=== PATIENT | male | born 1995 | race Caucasian/White ===

== ENCOUNTER 2022-01-28 12:25 | Emergency (ER) | payer OTHER, SELFPAY ==
--- NOTE | ~2022-01-28 | XR_ITS ---
EXAMINATION: XR CHEST CLINICAL INFORMATION: Cough, shortness of breath. COMPARISON: None TECHNIQUE: 2 views of the chest were obtained. FINDINGS: No significant abnormality is noted involving the heart, lungs, mediastinum, bony thorax or soft tissues. XR/XR chest 2V IMPRESSION: No acute cardiopulmonary process.
[2022-01-28 12:39] VITALS: BP 157/70; PULSE 54; RESP 20; TEMP 36.8; O2SAT 98; BMI 36.0
--- NOTE | 2022-01-28 12:44 | ED.GENADULT ---
HPI - General Adult General Chief complaint: General Medical Stated complaint: Dizziness/Eye blurriness after chemical exposure Time Seen by Provider: 01/28/22 12:48 Source: patient Mode of arrival: ambulatory Limitations: no limitations History of Present Illness HPI narrative: 27-year-old male here with complaints of feeling lightheaded, nausea, headache, light sensitivity after being exposed to pneumonia products yesterday. Patient reports he was working in a ammonia containing substance spilled in the back of his truck. He believes he was exposed for several hours and then started to clean it up. Started to develop these symptoms during the cleaning process which have continued through today. Overall he is feeling better but not 100%. He denies any URI symptoms today but did have some yesterday which have resolved. Related Data Allergies Allergy/AdvReac Type Severity Reaction Status Date / Time No Known Allergies Allergy Verified 01/28/22 12:44 Review of Systems Review of Systems: Yes all other systems are reviewed and are negative Constitutional: Constitutional: Reports no additional constitutional complaints, Denies body ache(s), Denies chills, Denies fever(s), Reports headache(s) and Denies weakness Eyes: Eyes: Reports no additional eye complaints, Denies change in vision and Reports photophobia ENT: Reports system reviewed and no additional complaints, except as documented, Reports dizziness, Reports headache(s), Denies nasal congestion, Denies nasal discharge and Denies neck pain Cardiovascular: Cardiovascular: Reports no additional cardiovascular complaints, Denies chest pain, Denies leg edema and Denies dyspnea Respiratory: Respiratory: Reports no additional respiratory complaints, Denies cough and Denies dyspnea Gastrointestinal: Gastrointestinal: Reports no additional gastrointestinal complaints, Denies abdominal pain, Denies diarrhea, Reports nausea and Denies vomiting Genitourinary: Genitourinary: Denies urinary incontinence Musculoskeletal: Musculoskeletal: Reports no additional musculoskeletal complaints, Denies back pain, Denies arthralgias, Denies joint swelling, Denies neck pain, Denies numbness and Denies tingling Integumentary/Breasts: Skin/Breast: Reports system reviewed and no additional complaints, except as docu and Denies rash Neurologic: Reports system reviewed and no additional complaints, except as documented, Reports dizziness, Reports headache(s), Denies numbness, Denies tingling and Denies weakness [facility] Past Medical History Attestation statement: The following information was validated with the patient. Source: old records reviewed and nursing notes reviewed Physical Exam ED Vital Signs: Vital Signs - 24 hr 01/28/22 12:39 Temperature 98.2 F Pulse Rate 54 Respiratory Rate 20 Blood Pressure 157/70 H Pulse Oximetry 98 Oxygen Delivery Method Room Air BMI result Body Mass Index 36.0 Const General: cooperative, healthy appearing, comfortable and no acute distress Orientation/consciousness: patient oriented x3 Limitations: no limitations HENMT Head: Yes normal to inspection Ears: hearing grossly normal bilaterally Eyes General: appearance normal, both eyes and all related structures Pupils: Equal, round and reactive pupils present Direct Ophthalmoscopy: photophobia Neck Neck: Yes normal visual inspection and Yes full ROM Chest Chest palpation & inspection: normal inspection of the chest Resp Effort & Inspection: normal respiratory effort Auscultation: clear to auscultation bilaterally Cardio Rate: regular rate Rhythm: regular rhythm Peripheral pulses: Peripheral pulses 2+ throughout GI Inspection: Yes normal to inspection Skin General skin exam: no rashes or lesions noted Neuro General: patient oriented x3 and moves all extremities Cranial nerves: Yes CN's II-XII intact bilaterally, Yes Equal, round and reactive pupils present, Yes Bilaterally intact EOM present, Yes Nystagmus not present and Yes Normal facial strength present Cognition (Neuro): normal cognition Gait exam (Neuro): Normal gait present Motor exam (neuro): 5/5 motor strength present throughout Sensory Exam: Normal double simultaneous stimulation for sensation Course Course Course Narrative: This is a rapid medical exam. Deferred HPI, ROS, PE to primary provider. 27 yo male healthy here FOSTER, foggy feeling, lightheaded, nausea after exposure to cennelsol (ammonia substance) yesterday. Opened in back of truck and patient was exposed to chemical containing amount Reevaluation(s) Reevaluation #1: Chest x-ray shows no acute finding. Recommend patient follow-up outpatient with work connection. Reviewed worrisome signs and symptoms with return to the emergency room. Comfortable plan for discharge home. Medical Decision Making Medical Decision Making [facility] Narrative: 27-year-old male here with complaints of headache, feeling lightheaded, nausea, light sensitivity after being exposed to and pneumonia containing substances she while working. Normal neuro exam. Vitals are stable. Does report some URI symptoms yesterday but these are improved. Will check chest x-ray. If normal will discharge with follow-up with work connection Discharge Plan Discharge Clinical Impression: Chemical exposure Patient Disposition: Home, Self-Care Instructions: Acute Headache (ED) Additional Instructions: Follow-up with work connection [phone] your symptoms are likely related to exposure to ammonia which will resolve with time Referrals: Physician,None [Primary Care Provider] - Stand Alone Forms: Work/School Release
== END 2022-01-28 14:20 | disposition home or self-care (01) ==
PROVIDERS: Emergency Provider Emergency Medicine
DX: R42 Dizziness and giddiness (principal); R51.9 Headache, unspecified; R06.02 Shortness of breath; Z57.5 Occupational exposure to toxic agents in other industries
CPT/HCPCS: 71046; 99282; 99283

== ENCOUNTER → 2022-02-01 14:25 | Outpatient (BNVA) | payer OTHER, SELFPAY | PROVIDERS: Visit Provider Physician Assistant Medical | DX: T50.991A Poisoning by other drugs, medicaments and biological substances, accidental (unintentional), initial encounter (principal) | CPT/HCPCS: 99203 ==

== ENCOUNTER → 2022-02-03 11:03 | Outpatient (BNVA) | payer OTHER, SELFPAY | PROVIDERS: Visit Provider Physician Assistant Medical | DX: Z57.5 Occupational exposure to toxic agents in other industries (principal); H53.149 Visual discomfort, unspecified; H53.9 Unspecified visual disturbance | CPT/HCPCS: 99213 ==